=== PATIENT | female | born 1995 | race Caucasian/White ===

== ENCOUNTER 2023-10-28 14:02 | Emergency (ER) | payer BC, SELFPAY ==
[2023-10-28 14:37] VITALS: BP 134/84; PULSE 73; RESP 16; TEMP 36.8; O2SAT 98; BMI 36.7
[2023-10-28 16:11] LABS: Basophils % 0.4 %; Eosinophils # 0.2 10^3/uL (0.0-0.8); Eosinophils % 2.3 %; Hematocrit 45.5 % (36-47); Lymphocytes # 1.7 10^3/uL (0.8-4.8); Lymphocytes % 23.2 %; Mean Corpuscular HGB Conc 33.4 g/dL (30-55); Mean Corpuscular Hemoglobin 28.5 pg (27-33); Mean Corpuscular Volume 85.4 fl (85-98); Mean Platelet Volume 9.5 fL (7.4-10.4); Monocytes # 0.5 10^3/uL (0.2-0.9); Monocytes % 6.1 %; Neutrophils # 5.07 10^3/uL (1.8-7.7); Neutrophils % 67.7 %; Nucleated Red Blood Cells % 0 %; Platelet Count 270 10^3/cmm (157-399); Red Blood Count 5.33 10^6/uL (3.85-5.65); Red Cell Distribution Width 12.8 % (12.1-15.1); White Blood Count 7.49 10^3/uL (3.29-11.43)
[2023-10-28 16:23] LABS: HCG, Serum Qual Negative (Negative)
[2023-10-28 16:28] LABS: Alanine Aminotransferase 21 U/L (0-33); Albumin Level 4.2 g/dL (3.5-5.2); Alkaline Phosphatase 91 U/L (35-105); Anion Gap 16.1 (5-19); Aspartate Amino Transferase 20 U/L (0-32); Blood Urea Nitrogen 18 mg/dL (6-20); Calcium 9.3 mg/dL (8.5-10.5); Carbon Dioxide 23 mmol/L (22-29); Chloride 102 mmol/L (98-107); Creatinine Clr Calc Pharmacy 117.3603; Globulin 3.6 g/dL (1.3-4.6); Glomerular Filtration Rate 84.8 mL/min (90-130); Glucose 84 mg/dL (65-115); Osmolality Calculated 285 mOsm/kg (285-295); Potassium 4.1 mmol/L (3.5-5.1); Sodium 137 mmol/L (136-145); Total Bilirubin 0.3 mg/dL (0.15-1.2); Total Protein 7.8 g/dL (6.6-8.7)
--- NOTE | 2023-10-28 16:58 | USR_ITS ---
PROCEDURE INFORMATION: Exam: US Pelvis, Transvaginal, Non-Obstetric Exam date and time: 10/28/2023 5:07 PM Age: 27 years old Clinical indication: Device placement; Iud placement/localization; Additional info: Vag bleeding/ iud placement TECHNIQUE: Imaging protocol: Real-time transvaginal pelvic (non-obstetric) ultrasound with image documentation. Transvaginal imaging was used for better evaluation of the endometrium, adnexa, and/or cervix. COMPARISON: No relevant prior studies available. FINDINGS: Uterus: Uterus is anteverted, measuring 7.3 x 5.0 x 3.6 cm. Endometrium measures 4 mm in thickness. Intrauterine device in place positioned in the lower uterine segment. Right ovary/adnexa: Right ovary measures 3.7 x 2.4 x 3.5 cm. Flow is visualized. No evidence of adnexal mass. Dominant right ovarian follicle noted. Left ovary/adnexa: Left ovary measures 2.2 x 2.0 x 2.6 cm. Flow is visualized. No evidence of adnexal mass. Intraperitoneal space: Trace free fluid. US/US transvaginal [id number] IMPRESSION: 1. Normal flow in both ovaries. No evidence of torsion. 2. IUD in place positioned within the lower uterine segment. Follow-up fowl blood tester evaluation is recommended.
--- NOTE | 2023-10-28 18:29 | ED_ITS ---
HPI - Female Genitourinary 2 General: Chief complaint: Vaginal Bleeding Stated complaint: imbedded IUD Time Seen by Provider: 10/28/23 18:03 History of Present Illness: 27-year-old female presents the emergenc y department with a Mirena IUD embedded in her uterus. She reports has been present for 7 years. Her provider tried to remove it and could not get it to come out. They sent her for follow-up x-rays and confirmed there was still a piece of the IUD in there. They have asked her to come to the emergency department if she had ongoing pain and bleeding. She does have an appointment scheduled for consultation with IT OPERATIONS MANAGER on November 20. Patient reports she is having fairly heavy bleeding. The pain comes and goes and feels like [place] contractions. No fever. No lightheadedness, syncope, palpitations. Associated symptoms: Deny nausea or syncope Related Data Previous Rx's Medication Instructions Recorded hydrocodone 5 mg-acetaminophen 325 1 tab PO Q6H PRN pain, severe #20 10/28/23 mg tablet tabs sennosides 8.6 mg-docusate sodium 1 tab-cap PO BID PRN constipation 10/28/23 50 mg tablet (Senna with Docusate #20 tabs Sodium) Allergies Allergy/AdvReac Type Severity Reaction Status Date / Time No Known Allergies Allergy Verified 10/28/23 14:37 Review of Systems 2 General: Reports: 10 or more systems reviewed and unremarkable except in HPI and below Const: Denies: fever(s), chills or body aches Card: Denies: chest pain, edema or syncope Resp: Denies: dyspnea or productive cough GI: Denies: nausea, vomiting or diarrhea : Denies: flank pain, dysuria or urinary frequency Musc: Denies: neck pain, back pain, extremity pain or extremity swelling Skin/Breast: Denies: rash or erythema Physical Exam 2 Narrative: EXAM NARRATIVE: Very mild tenderness in the suprapubic region. No guarding. No masses on deep palpation. No peritonitis. Const: COMMON NORMALS: no limitations, alert and well nourished EXAM LIMITATIONS: no altered mental status HENMT: COMMON NORMALS: normocephalic, atraumatic and external ears normal H EAD & SCALP: normocephalic and atraumatic EXTERNAL EAR: Yes external ears normal MOUTH: no muffled voice Eye: COMMON NORMALS: EOMs intact bilaterally, conjunctivae normal and no scleral icterus CONJUNCTIVA: Yes conjunctivae normal Neck/C-Spine: GENERAL: Yes normal visual inspection and Yes trachea midline Resp: COMMON NORMALS: normal respiratory effort and No use of accessory muscles Cardio: COMMON NORMALS: regular rate and regular rhythm RATE: regular rate RHYTHM: regular rhythm GI: COMMON NORMALS: Soft to palpation PALPATION: Yes Soft to palpation and No Guarding due to palpation present (GI) Extremity: COMMON NORMALS: normal to inspection Neuro: COMMON NORMALS: moves all extremities, no focal motor deficits and no sensory deficits noted SENSORIUM/ORIENTATION: Yes alert SPEECH: speech normal Psych: COMMON NORMALS: mental status grossly normal, Normal thought process present, cooperative, normal affect and speech normal SPEECH: Yes normal speech THOUGHT PROCESS: Normal thought process present Skin: COMMON NORMALS: no rashes or lesions noted, turgor normal and no jaundice GENERAL SKIN EXAM: no rashes or lesions noted and turgor normal Course 2 Vital Signs: Vital signs: Vital Signs Temperature 98.2 F 10/28/23 14:37 Pulse Rate 73 10/28/23 14:37 Respiratory Rate 16 10/28/23 14:37 Blood Pressure 134/84 10/28/23 14:37 Pulse Oximetry 98 10/28/23 14:37 [facility] - Female Medical Decision Making IUD that has been in for 7 years was difficult to remove for the patient's provider. They feel its likely embedded into the endometrium/myometrium. The patient's hemoglobin today is 15.2. She is not tachycardic. She has no fever. She does not have any peritonitis or rebound. The IUD is seen in her uterus on ultrasound. I consulted with IT OPERATIONS MANAGER on-call. He reports that he would be happy to add her on for removal under anesthesia at this . Spoke to the patient about this and she was grateful. She is hemodynamically stable without any signs of perforated uterus. She can be discharged with pain medication at this time. Lab Data 10/28/23 15:55 10/28/23 15:55 Laboratory Results WBC 7.49 10^3/uL (3.29-11.43) 10/28/23 15:55 RBC 5.33 10^6/uL (3.85-5.65) 10/28/23 15:55 Hgb 15.20 g/dL (11.27-16.99) 10/28/23 15:55 Hct 45.5 % (36-47) 10/28/23 15:55 MCV 85.4 fl (85-98) 10/28/23 15:55 MCH 28.5 pg (27-33) 10/28/23 15:55 MCHC 33.4 g/dL (30-55) 10/28/23 15:55 RDW 12.8 % (12.1-15.1) 10/28/23 15:55 Plt Count 270 10^3/cmm (157-399) 10/28/23 15:55 MPV 9.5 fL (7.4-10.4) 10/28/23 15:55 Neut % (Auto) 67.7 % 10/28/23 15:55 Lymph % (Auto) 23.2 % 10/28/23 15:55 Lane % (Auto) 6.1 % 10/28/23 15:55 Eos % (Auto) 2.3 % 10/28/23 15:55 Baso % (Auto) 0.4 % 10/28/23 15:55 Neut # (Auto) 5.07 10^3/uL (1.8-7.7) 10/28/23 15:55 Lymph # (Auto) 1.7 10^3/uL (0.8-4.8) 10/28/23 15:55 Lane # (Auto) 0.5 10^3/uL (0.2-0.9) 10/28/23 15:55 Eos # (Auto) 0.2 10^3/uL (0.0-0.8) 10/28/23 15:55 Baso # (Auto) 0.0 10^3/uL (0.0-0.1) 10/28/23 15: Nucleated RBC % (auto) 0 % 10/28/23 15: Nucleated RBCs # 0.0 /100WBC 10/28/23 15:55 Sodium 137 mmol/L (136-145) 10/28/23 15:55 Potassium 4.1 mmol/L (3.5-5.1) 10/28/23 15:55 Chloride 102 mmol/L (98-107) 10/28/23 15:55 Carbon Dioxide 23 mmol/L (22-29) 10/28/23 15:55 Anion Gap 16.1 (5-19) 10/28/23 15:55 BUN 18 mg/dL (6-20) 10/28/23 15:55 Creatinine 0.8 mg/dL (0.5-0.9) 10/28/23 15:55 GFR Calculation 84.8 mL/min (90-130) L 10/28/23 15:55 Glucose 84 mg/dL (65-115) 10/28/23 15:55 Calculated Osmolality 285 mOsm/kg (285-295) 10/28/23 15:55 Calcium 9.3 mg/dL (8.5-10.5) 10/28/23 15:55 Total Bilirubin 0.3 mg/dL (0.15-1.2) 10/28/23 15:55 AST 20 U/L (0-32) 10/28/23 15:55 ALT 21 U/L (0-33) 10/28/23 15:55 Alkaline Phosphatase 91 U/L (35-105) 10/28/23 15:55 Total Protein 7.8 g/dL (6.6-8.7) 10/28/23 15:55 Albumin 4.2 g/dL (3.5-5.2) 10/28/23 15:55 Globulin 3.6 g/dL (1.3-4.6) 10/28/23 15:55 HCG, Qual Negative (Negative) 10/28/23 15:55 XR interpretation done by ED provider, pending radiology final review Discharge Plan Discharge Patient Disposition: Home Clinical Impression: IUD complication Condition: Stable Prescriptions: New hydrocodone-acetaminophen 5-325 mg tablet 1 tab PO Q6H PRN (Reason: pain, severe) Qty: 20 0RF Senna with Docusate Sodium 8.6-50 mg tablet 1 tab-cap PO BID PRN (Reason: constipation) Qty: 20 0RF Discharge Orders: Discharge ED (Routine); Ordered 10/28/23 Ordered By: Rocky Martini Referrals: Kathleen Silverio MD [Family Provider] - Choco Underwood MD [Physician] - 11/01/23 (Remove IUD under anesthesia) Patient Instructions: Intrauterine Device (DC), Opioid Safety, Pain Management Activity Restrictions/Additional Instructions: Dr. Underwood intends to add you on to his operative day on the for removal of IUD under anesthesia. Return to the emergency department if you have a sudden severe increase in pain, fever, or hemorrhaging with symptomatic anemia. Coding Level of Care Code ED Tattoo Identifier for Yesenia Arzola
[2023-10-28 19:12] VITALS: BP 128/71; PULSE 71; RESP 18; O2SAT 98
== END 2023-10-28 19:13 | disposition home or self-care (01) ==
PROVIDERS: Emergency Medicine; Emergency Provider Emergency Medicine; Family Provider Family Medicine
DX: T83.89XA Other specified complication of genitourinary prosthetic devices, implants and grafts, initial encounter (principal)
CPT/HCPCS: 36415; 76830; 80053; 84703; 85025; 99284

== ENCOUNTER → 2023-11-14 07:49 | Outpatient (BNVA) | payer BC, SELFPAY | PROVIDERS: Family Provider Family Medicine; Visit Provider Obstetrics & Gynecology | DX: Z30.9 Encounter for contraceptive management, unspecified (principal) | CPT/HCPCS: 81025 ==